=== PATIENT | male | born 1965 | race Caucasian/White ===

== ENCOUNTER 2018-11-01 00:57 | Emergency (ER) | payer BC ==
[~2018-11-01] VITALS: Ht 165.1 cm; Wt 77.1 kg
--- NOTE | 2018-11-01 01:10 | NUR ---
PT PRESENTED TO THE ER WITH A C/O CHEST PRESSURE THAT RADIATES TO THE SHOULDERS AND THE BACK. PT DESCRIBES THE BACK PAIN MUSCLE PAIN. PT AMBULATED TO ER 12 WITH A STEADY GAIT. PT STATED THAT HIS PAIN HAS SIGNIFICANTLY DIMINISHED. PT WAS PLACED ON THE MONITOR AND CONTINUOUS PULSE OX.
--- NOTE | 2018-11-01 01:30 | NUR ---
PT'S ARRIVED AND IS AT THE BEDSIDE. PT IS AWARE THAT HE WILL HAVE A REPEAT TROPONIN AT 4AM
[2018-11-01 01:46] LABS: BASOPHILS # (AUTO) 0.1 /CMM (0.0-0.2); BASOPHILS % (AUTO) 1.1 % (0.0-2.0); EOSINOPHILS % (AUTO) 4.3 % (0.0-6.0); HEMATOCRIT 43 % (39-51); HEMOGLOBIN 14.8 g/dL (13.5-17.5); LYMPHOCYTES # (AUTO) 1.9 /CMM (0.8-4.8); LYMPHOCYTES % (AUTO) 28.5 % (20.0-44.0); MEAN CORPUSCULAR HGB CONC 34 g/dl (31.0-36.0); MEAN CORPUSCULAR VOLUME 93 fL (80-96); MONOCYTES # (AUTO) 0.9 /CMM (0.1-1.30); MONOCYTES % (AUTO) 14.1 % (2.0-12.0); NEUTROPHILS # (AUTO) 3.4 /CMM (1.8-8.9); PLATELET COUNT (AUTO) 234 /CMM (150-450); RED BLOOD CELL COUNT(AUTO) 4.65 MIL/uL (4.5-6.0); WHITE BLOOD COUNT (AUTO) 6.5 K/uL (4.3-11.0)
[2018-11-01 01:53] LABS: CALCIUM, SERUM 8.7 mg/dL (8.5-10.1); CARBON DIOXIDE 25 mmol/L (21-32); CHLORIDE 104 mmol/L (98-107); GLUCOSE 103 mg/dL (74-106); POTASSIUM 3.8 mmol/L (3.5-5.1); SODIUM SERUM 139 mmol/L (136-145); UREA NITROGEN, BLOOD 15 mg/dL (7-18)
--- NOTE | 2018-11-01 02:39 | NUR ---
PT APPEARS TO BE RESTING COMFORTABLY WITH NO S/S OF PAIN OR DISTRESS.
--- NOTE | 2018-11-01 02:56 | NUR ---
REPORT GIVEN TO MARIO AMIN FOR SHAAN.
[2018-11-01 04:52] VITALS: BP 126/74
--- NOTE | 2018-11-01 05:01 | NUR ---
Patient is resting comfortably in bed with eyes closed. Easily aroused. VSS.
--- NOTE | 2018-11-01 05:47 | NUR ---
IVIV removed. Catheter intact and site benign. Pressure and 4x4 applied to site. No bleeding noted.Patient discharged to home in stable condition. Written and verbal after care instructions given. Patient verbalizes understanding of instruction. PT AMBULATORY WITH STEADY GAIT.
== END 2018-11-01 05:51 | disposition home or self-care (01) ==
LOC: ER 01:00
DX: R07.89 Other chest pain (principal); R00.1 Bradycardia, unspecified; F10.10 Alcohol abuse, uncomplicated; Y90.9 Presence of alcohol in blood, level not specified
CPT/HCPCS: 36415; 71045-TC; 80048-TC; 84484-TC; 85025-TC

== ENCOUNTER 2019-12-10 20:11 | Inpatient (IN) | payer BC, OTHER ==
[~2019-12-10] VITALS: Ht 170.2 cm; Wt 103.5 kg
--- NOTE | 2019-12-10 20:30 | NUR ---
BIBPARTNER/ FROM HOME TO ER BED 7. AAOX4. NOT IN RESP DISTRESS. AMBUALTORY. CAME IN FOR RLQ ABDOMINAL PAIN STARTED 1300. PAIN IS RATED 8/10 SHARP IN SENSATION. DENIES NAUSEA OR VOMITING. NOTED TENDERNESS UPON PALPATION OVER THE MCBURNEY'S POINT. ALBERT FAUSTIN AT BEDSIDE FOR EVAL. AWAITING ORDERS.
[2019-12-10] MEDS ORDERED: ONDANSETRON HCL/PF 4 MG/2 ML VIAL ONE (20:54)
[2019-12-10] MEDS ORDERED: MORPHINE SULFATE INJ 4 MG/ML DISP.SYRIN ONE (20:54)
[2019-12-10 20:55] LABS: BASOPHILS # (AUTO) 0.1 /CMM (0.0-0.2); BASOPHILS % (AUTO) 1.3 % (0.0-2.0); EOSINOPHILS % (AUTO) 0.8 % (0.0-6.0); HEMATOCRIT 46 % (39-51); HEMOGLOBIN 15.2 g/dL (13.5-17.5); LYMPHOCYTES # (AUTO) 1.4 /CMM (0.8-4.8); LYMPHOCYTES % (AUTO) 12.6 % (20.0-44.0); MEAN CORPUSCULAR HGB CONC 33 g/dl (31.0-36.0); MEAN CORPUSCULAR VOLUME 93 fL (80-96); MONOCYTES # (AUTO) 1.2 /CMM (0.1-1.30); NEUTROPHILS # (AUTO) 8.2 /CMM (1.8-8.9); NEUTROPHILS % (AUTO) 74.3 % (43.0-81.0); PLATELET COUNT (AUTO) 259 /CMM (150-450); RED BLOOD CELL COUNT(AUTO) 4.92 MIL/uL (4.5-6.0)
[2019-12-10 20:57] LABS: APPEARANCE,URINE Clear (CLEAR); BILIRUBIN,URINE Negative (NEGATIVE); BLOOD, URINE Negative Ery/uL (NEGATIVE); COLOR,URINE Yellow (YELLOW); KETONES,URINE Negative (NEGATIVE); LEUKOCYTE ESTERASE ,URINE Negative (NEGATIVE); NITRITE, URINE Negative (NEGATIVE); PH,URINE 5.5 (5.0-8.0); PROTEIN,URINE Negative (NEGATIVE); UGLUCOSE Negative (NEGATIVE); UROBILINOGEN,URINE 0.2 EU/dL (0.2)
[2019-12-10] MEDS ORDERED: ONDANSETRON HCL/PF 4 MG/2 ML VIAL IVP ONE (21:00)
[2019-12-10] MEDS ORDERED: MORPHINE SULFATE INJ 2 MG/ML DISP.SYRIN IV ONE (21:00)
[2019-12-10] MEDS ORDERED: IV NS 0.9% 1,000 ML BAG IV ONE (21:00)
[2019-12-10 21:02] LABS: CALCIUM, SERUM 9.6 mg/dL (8.5-10.1); CREATININE 1.2 mg/dL (0.6-1.3); POTASSIUM 4.2 mmol/L (3.5-5.1)
[2019-12-10 21:08] LABS: ALBUMIN 4.1 g/dL (3.4-5.0); BILIRUBIN,DIRECT 0.1 mg/dL (0.0-0.2); BILIRUBIN,TOTAL 0.5 mg/dL (0.2-1.0); TOTAL PROTEIN, SERUM 8.1 g/dL (6.4-8.2)
[2019-12-10] MEDS ORDERED: PIPERACILLIN /TAZOBACTAM 3.375 G in IV D5W 50 ML IV ONE (22:00)
--- NOTE | 2019-12-10 22:07 | NUR ---
COVID SWAB DONE AND SENT TO LAB
--- NOTE | 2019-12-10 22:40 | NUR ---
TERRENCE MOREIRA TALKING TO DR. SIMMONS REGARDING PT.
--- NOTE | 2019-12-10 22:46 | NUR ---
Ragini larois in [facility] - 12/10/19 at 2256 by ELROY TERRENCE MOREIRA SPOKE TO DR. ECHEVERRIA REGARDING PT ADMISSION.
[2019-12-10] MEDS ORDERED: PIPERACILLIN /TAZOBACTAM 3.375 G VIAL IV ONE (22:51)
--- NOTE | 2019-12-10 22:56 | NUR ---
ER TALKING TO WANDA DUMONT REGARDING PT ADMISSION.
--- NOTE | 2019-12-10 23:07 | NUR ---
BED 323-1
[2019-12-10] MEDS ORDERED: IV D5/0.45 NACL 1,000 ML IV PRN (23:26)
[2019-12-10] MEDS ORDERED: ACETAMINOPHEN 650 MG/SUPP.RECT RC PRN (23:30)
[2019-12-10] MEDS ORDERED: ONDANSETRON HCL/PF 4 MG/2 ML VIAL IVP PRN (23:30)
--- NOTE | 2019-12-10 23:31 | NUR ---
REPORT CALLED TO M/S MARIO HANNON
--- NOTE | 2019-12-10 23:48 | NUR ---
LAB CALLED REGARDING NEGATIVE COVID RESULT.
[2019-12-11] VITALS (12 sets, daily range): BP systolic 104–126; BP diastolic 65–77
--- NOTE | 2019-12-11 00:05 | NUR ---
PT TRANSPORTED TO UNIT ON [facility] WITH EMT AND RN AT BEDSIDE. PT IS IN STABLE CONDITION. NAD NOTED DURING TRANSPORT. PT AMBULATED FROM GURNEY TO BED ON STEADY GAIT.
--- NOTE | 2019-12-11 00:10 | NUR ---
MS BUSHING PRESS OPERATOR NOTES RECEIVED PATIENT FROM ER, ALERT AND ORIENTED X 4 AMBULATORY. VERBALLY RESPONSIVE AND ABLE TO FOLLOW DIRECTIONS. BREATHING REGULAR AND UNLABORED ON ROOM AIR. RIGHT AC G20 IV LINE INTACT AND PATENT, FLUSHING WELL WITH NO BLEEDING OR S/S OF INFILTRATION NOTED. BODY ASSESSMENT DONE, SKIN INTACT CLEAN AND DRY. BELONGINGS AND VITAL SIGNS CHECKED BY NATUROPATHIC ONCOLOGY PROVIDER. PATIENT DOESN'T HAVE AN ADVANCE DIRECTIVES AND WISHED TO BE FULL CODE. DENIES SUICIDAL IDEATION. COMPLAINED OF 3/10 HEADACHE, TYLENOL 650MG SUPPOSITORY GIVEN. NON-PHARMACOLOGICAL INTERVENTIONS PROVIDED. BED LOW AND LOCKED ON SEMI FOWLERS POSITION. CALL LIGHT IN REACH. WILL CONTINUE TO MONITOR.
[2019-12-11] MEDS ORDERED: PIPERACILLIN /TAZOBACTAM 3.375 G VIAL IV ONE (03:57)
[2019-12-11 05:04] LABS: BASOPHILS # (AUTO) 0.1 /CMM (0.0-0.2); BASOPHILS % (AUTO) 0.6 % (0.0-2.0); EOSINOPHILS % (AUTO) 0.3 % (0.0-6.0); HEMATOCRIT 43 % (39-51); HEMOGLOBIN 14.3 g/dL (13.5-17.5); LYMPHOCYTES # (AUTO) 1.5 /CMM (0.8-4.8); LYMPHOCYTES % (AUTO) 11.3 % (20.0-44.0); MEAN CORPUSCULAR HGB CONC 33 g/dl (31.0-36.0); MEAN CORPUSCULAR VOLUME 93 fL (80-96); MONOCYTES # (AUTO) 1.6 /CMM (0.1-1.30); NEUTROPHILS # (AUTO) 9.8 /CMM (1.8-8.9); NEUTROPHILS % (AUTO) 75.8 % (43.0-81.0); PLATELET COUNT (AUTO) 227 /CMM (150-450)
[2019-12-11 05:34] LABS: THYROID STIMULATING HORMONE 0.699 uIU/mL (0.358-3.74)
[2019-12-11] MEDS ORDERED: PIPERACILLIN /TAZOBACTAM 3.375 G in IV D5W 50 ML IV SCH (06:00)
--- NOTE | 2019-12-11 06:10 | NUR ---
MS RN NOTES CONSENTS FOR LAPAROSCOPIC APPENDECTOMY SIGNED BY PATIENT.
[2019-12-11] MEDS: MORPHINE SULFATE INJ 2 MG/ML DISP.SYRIN IV PRN ×2 (06:12→14:03)
--- NOTE | 2019-12-11 06:35 | NUR ---
MS RN CLOSING NOTES PATIENT IN BED ALERT AND ORIENTED X 4 AMBULATORY. AFEBRILE WITH NO S/S OF DISTRESS OBSERVED. RIGHT AC G20 IV LINE PATENT AND INFUSING WELL. COMPLAINED OF 8/10 RIGHT LOWER ABDOMEN PAIN, MORPHINE 2MG GIVEN IVP. NON-PHARMACOLOGICAL INTERVENTIONS PROVIDED. BED LOW AND LOCKED ON SEMI FOWLERS POSITION. CALL LIGHT IN REACH. WILL ENDORSE TO MORNING SHIFT FOR SHAAN.
[2019-12-11] MEDS ORDERED: BUPIVACAINE 0.5 % PF 150 MG/30 ML VIAL ONE (06:48)
[2019-12-11] MEDS ORDERED: ANESTHESIA TRAY IN PYXIS 1 EA TRAY MC ONE (06:48)
--- NOTE | 2019-12-11 07:15 | NUR ---
MS RN NOTES PATIENT TRANSFERRED TO OR FOR SCHEDULED SURGERY.
[2019-12-11 07:16] LABS: ALBUMIN 3.3 g/dL (3.4-5.0); BILIRUBIN,TOTAL 0.7 mg/dL (0.2-1.0); CALCIUM, SERUM 8.4 mg/dL (8.5-10.1); CREATININE 1.2 mg/dL (0.6-1.3); MAGNESIUM 2.1 mg/dL (1.8-2.4); PHOSPHORUS 4.2 mg/dL (2.5-4.9); POTASSIUM 3.8 mmol/L (3.5-5.1)
[2019-12-11] MEDS ORDERED: MIDAZOLAM HCL 2 MG/2ML VIAL ONE (07:20)
[2019-12-11] MEDS ORDERED: FLUMAZENIL 0.5 MG VIAL ONE (07:21)
[2019-12-11] MEDS ORDERED: SCOPOLAMINE HBR 1 EA PATCH.TD72 TD ONE (07:21)
[2019-12-11] MEDS ORDERED: FENTANYL PF 100MCG/2ML AMPUL ONE (07:21)
[2019-12-11] MEDS ORDERED: SEVOFLURANE 250 ML BOTTLE IH ONE (07:22)
[2019-12-11] MEDS: PANTOPRAZOLE 40 MG VIAL IV SCH (09:53)
--- NOTE | 2019-12-11 09:54 | NUR ---
MS RN NOTES PATIENT RETURNED FROM OR IN STABLE CONDITION WILL CONTINUE TO MONITOR.
[2019-12-11] MEDS: PIPERACILLIN /TAZOBACTAM 3.375 G in IV D5W 100 ML IV SCH ×2 (13:13→21:18)
[2019-12-11] MEDS ORDERED: HYDROCODONE/APAP 5/325MG 1 EACH TABLET PO PRN (19:00)
[2019-12-11] MEDS ORDERED: Potassium Chloride 20 MEQ in IV D5/0.45 NACL 1,000 ML IV SCH (19:00)
--- NOTE | 2019-12-11 19:29 | NUR ---
MS RN NOTES ALL DUE MEDICATIONS ADMINISTERED. ALL NEEDS MET. NO ACUTE CHANGES NOTED DURING SHIFT. PATIENT SEEN AMBULATING IN THE HALLWAY ENCOURAGE. ENDORSED CARE TO PM SHIFT.
--- NOTE | 2019-12-11 21:00 | NUR ---
MS RN OPENING NOTES PATIENT RECEIVED RESTING IN BED A/O X 4. NO SIGNS OF ACUTE DISTRESS. NO COMPLAINTS OF PAIN OR DISCOMFORT AT THE MOMENT. IV LOCATED ON R AC #20. SAFETY PRECAUTIONS IN PLACE WITH BED IN LOWEST POSITION, CALL LIGHT WITHIN REACH, BREAKS ON, SIDE RAILS UP. WILL CONTINUE TO MONITOR THROUGHOUT THE NIGHT.
--- NOTE | 2019-12-11 23:30 | NUR ---
RN NOTES PRN NORCO ADMINISTERED DUE TO COMPLAINTS OF PAIN 09/02
[2019-12-12] MEDS: PIPERACILLIN /TAZOBACTAM 3.375 G in IV D5W 100 ML IV SCH ×2 (05:07→12:17)
--- NOTE | 2019-12-12 06:43 | NUR ---
MS RN CLOSING NOTES PATIENT RESTING IN BED A/O X 4. ON 2L OF O2 VIA NC WITH BREATHING EVEN AND UNLABORED, NO SOB NOTED. NO SIGSN OF ACUTE DISTRESS. NO COMPLAINTS OF PAIN OR DISCOMFORT AT THE MOMENT. IV LOCATED ON R AC #20 AND LFA #22 RUNNING KCL D5NS @ 75 ML/HR. PATIENT STABLE AND AMBULATORY. SAFETY PRECAUTIONS IN PLACE WITH BED IN LOWEST POSITION, CALL LIGHT WITHIN REACH, BREAKS ON, SIDE RAILS UP. ALL NEEDS ATTENDED TO. WLL ENDORSE TO ONCOMING SHIFT ABOUT SHAAN.
[2019-12-12 06:50] LABS: BASOPHILS % (AUTO) 0.2 % (0.0-2.0); EOSINOPHILS % (AUTO) 0.2 % (0.0-6.0); HEMATOCRIT 41 % (39-51); HEMOGLOBIN 13.4 g/dL (13.5-17.5); LYMPHOCYTES # (AUTO) 1.3 /CMM (0.8-4.8); LYMPHOCYTES % (AUTO) 12.5 % (20.0-44.0); MEAN CORPUSCULAR HGB CONC 33 g/dl (31.0-36.0); MEAN CORPUSCULAR VOLUME 94 fL (80-96); MONOCYTES # (AUTO) 1.2 /CMM (0.1-1.30); MONOCYTES % (AUTO) 11.8 % (2.0-12.0); NEUTROPHILS % (AUTO) 75.3 % (43.0-81.0); PLATELET COUNT (AUTO) 225 /CMM (150-450); RED BLOOD CELL COUNT(AUTO) 4.33 MIL/uL (4.5-6.0); WHITE BLOOD COUNT (AUTO) 10.6 K/uL (4.3-11.0)
[2019-12-12 07:24] LABS: CALCIUM, SERUM 8.5 mg/dL (8.5-10.1); CREATININE 1.2 mg/dL (0.6-1.3); MAGNESIUM 2.2 mg/dL (1.8-2.4); PHOSPHORUS 3.3 mg/dL (2.5-4.9); POTASSIUM 3.9 mmol/L (3.5-5.1)
[2019-12-12 08:00] VITALS: BP 104/65
--- NOTE | 2019-12-12 08:00 | NUR ---
MS/RN - Assessment Patient is A/O X 4, afebrile, no complaints overnight, denies abdominal pain at this time, tolerated full lquid diet, will advance to soft, no c/o SOB, stable on room air. POD#1 Lap Appy under the care of Dr. Villaseñor. IVF infusing well on the RAC with no signs of infiltration, saline lock on the LFA is patent and intact. Labs reviewed, no critical results noted. Patient is ambulatory with steady gait. All needs attended and met. Will continue with current medical management.
[2019-12-12] MEDS: PANTOPRAZOLE 40 MG VIAL IV SCH (08:33)
[2019-12-12] MEDS ORDERED: METR-147 PO (10:58)
[2019-12-12] MEDS ORDERED: LEVO750T46 PO (10:58)
[2019-12-12] MEDS ORDERED: HYDR-4384 PO (10:59)
--- NOTE | 2019-12-12 15:50 | NUR ---
MS/RN - Discharge Patient discharged home in stable condition, remain afebrile, denies any abdominal pain, abdomen is soft, non-distended, 3 lap sites with mepilex dressing, c/d/i, tolerated soft diet well, no c/o n/v, ambulatory with steady gait, A/O x 4. Reviewed discharge instructions with patient and he verbalized full understanding of all teachings including medications and follow-up care with his PCP and Dr. Villaseñor within one week for staple removal. E-prescription was sent to his preferred pharmacy. Patient was advised to seek immediate medical attention for worsening of symptoms, severe abdominal pain, heavy bleeding from the incision sites, intractable n/v, diarrhea, shortness of breath, fever, confusion, weakness, fatigue, dizziness, or any other emergent medical concerns. All belongings with patient and he deny any missing items. Patient refused photos to be taken of skin, no breakdown noted except for lap sites. Saline lock removed on the RAC and LFA with catheter tip intact, no redness, no swelling or excessive bleeding noted at the site. Discharge paperwork signed and copies were given per protocol. Accompanied to the lobby via wheelchair by FILTERER and transported via private car by significant other.
== END 2019-12-12 16:00 | disposition home or self-care (01) | DRG 343 ==
LOC: ER 20:13 → MED 23:05 → MEDSG2 12-11 19:58
PROVIDERS: ADMIT Nurse Practitioner Acute Care; ATTEND Nurse Practitioner Acute Care
PROC: 0DTJ4ZZ Resection of Appendix, Percutaneous Endoscopic Approach (ICD-10-PCS; principal; 2019-12-11)
DX: K35.30 Acute appendicitis with localized peritonitis, without perforation or gangrene (principal); Z68.35 Body mass index [BMI] 35.0-35.9, adult; E66.9 Obesity, unspecified; D72.829 Elevated white blood cell count, unspecified
CPT/HCPCS: 36415; 71045-TC; 80048-TC; 80053-TC; 80061-TC; 80076-TC; 81000-TC; 83690-TC; 83735-TC; 84100-TC; 84443-TC; 85025-TC; 85730-TC; 86850-TC; 87070-TC; 87075-TC; 87081-TC; C9113; G0378; J1100; J1885; J2250; J2270; J2405; J2543; J2704; J3010; J3480; J3490; J7030; J7060

== ENCOUNTER 2020-03-03 11:28 | Emergency (ER) | payer BC ==
[~2020-03-03] VITALS: Ht 170.2 cm; Wt 104.3 kg
[~2020-03-03 11:28] MED LIST: HYDR-4384 PO; LEVO750T46 PO; METR-147 PO
--- NOTE | 2020-03-03 11:30 | NUR ---
BIB FRIEND C/O DIZZINESS "I FEEL LIKE THE ROOM IS SPINNING", TO ER BED 1, HOOKED TO SENIOR UX DESIGNER, BP CUFF AND POX, CHANGED TO HOSP GOWN, WARM BLANKET PROVIDED, PATIENT AAOx 4, BREATHING EVEN AND UNLABORED, NAD NOTED, DR DELAROSA AT BEDSIDE
[2020-03-03] MEDS ORDERED: ONDANSETRON HCL/PF 4 MG/2 ML VIAL ONE (11:46)
[2020-03-03] MEDS ORDERED: MECLIZINE HCL 25 MG TABLET ONE (11:46)
[2020-03-03] MEDS ORDERED: ONDANSETRON HCL/PF 4 MG/2 ML VIAL IVP ONE (12:00)
[2020-03-03] MEDS ORDERED: IV NS 0.9% 500 ML BAG IV ONE (12:00)
[2020-03-03] MEDS ORDERED: MECLIZINE HCL 25 MG TABLET PO ONE (12:00)
[2020-03-03 12:23] LABS: HEMOGLOBIN 12.2 g/dL (13.5-17.5)
[2020-03-03 12:29] LABS: BASOPHILS # (AUTO) 0.1 /CMM (0.0-0.2); BASOPHILS % (AUTO) 1.7 % (0.0-2.0); EOSINOPHILS % (AUTO) 1.8 % (0.0-6.0); HEMATOCRIT 36 % (39-51); LYMPHOCYTES % (AUTO) 19.7 % (20.0-44.0); MEAN CORPUSCULAR HGB CONC 34 g/dl (31.0-36.0); MEAN CORPUSCULAR VOLUME 92 fL (80-96); MONOCYTES # (AUTO) 0.5 /CMM (0.1-1.30); MONOCYTES % (AUTO) 10.3 % (2.0-12.0); NEUTROPHILS # (AUTO) 3.3 /CMM (1.8-8.9); NEUTROPHILS % (AUTO) 66.5 % (43.0-81.0); PLATELET COUNT (AUTO) 188 /CMM (150-450); RED BLOOD CELL COUNT(AUTO) 3.88 MIL/uL (4.5-6.0); WHITE BLOOD COUNT (AUTO) 4.9 K/uL (4.3-11.0)
[2020-03-03 12:34] LABS: ALBUMIN 2.4 g/dL (3.4-5.0); BILIRUBIN,DIRECT 0.1 mg/dL (0.0-0.2); BILIRUBIN,TOTAL 0.3 mg/dL (0.2-1.0); CALCIUM, SERUM 6.4 mg/dL (8.5-10.1); CREATININE 0.7 mg/dL (0.6-1.3); POTASSIUM 2.9 mmol/L (3.5-5.1); TOTAL PROTEIN, SERUM 5.1 g/dL (6.4-8.2)
[2020-03-03] MEDS ORDERED: POTASSIUM CHLORIDE 20 MEQ TAB.PRT.SR PO ONE ×2 (13:30→13:34)
[2020-03-03 13:35] VITALS: BP 129/82
--- NOTE | 2020-03-03 13:35 | NUR ---
IV removed. Catheter intact and site benign. Pressure and 4x4 applied to site. No bleeding noted.Patient discharged to home in stable condition. Written and verbal after care instructions given. Patient verbalizes understanding of instruction.
[2020-03-03] MEDS ORDERED: MECLIZINE HCL 12.5 MG TABLET PO ONE (14:00)
== END 2020-03-03 13:38 | disposition home or self-care (01) ==
LOC: ER 11:31
DX: R42 Dizziness and giddiness (principal); Z98.890 Other specified postprocedural states; Z79.899 Other long term (current) drug therapy
CPT/HCPCS: 36415; 80048; 80076; 85025; 96374; 99284; J2405; J7040; J8597

== ENCOUNTER 2024-02-09 22:39 | Emergency (ER) | payer BC ==
[~2024-02-09] VITALS: Ht 170.2 cm; Wt 98.4 kg
[2024-02-10] MEDS ORDERED: IBUPROFEN 400 MG TABLET ONE (00:28)
[2024-02-10] MEDS ORDERED: TDAP [DIPH/PERTUSSIS/TET] 0.5 ML VIAL IM ONE (00:29)
[2024-02-10] MEDS: IBUPROFEN 400 MG TABLET PO ONE (00:36)
[2024-02-10] MEDS: TDAP [DIPH/PERTUSSIS/TET] 0.5 ML VIAL IM ONE (00:36)
[2024-02-10] MEDS ORDERED: HYDR-3972 PO (00:48)
[2024-02-10] MEDS ORDERED: HYDROCODONE/APAP 5/325MG TABLET ONE (01:00)
[2024-02-10] MEDS: HYDROCODONE/APAP 5/325MG TABLET PO ONE (01:03)
[2024-02-10 01:16] VITALS: BP 125/69; TEMP 98; O2SAT 99
== END 2024-02-10 01:16 | disposition home or self-care (01) ==
LOC: ER 22:57
DX: S52.612A Displaced fracture of left ulna styloid process, initial encounter for closed fracture (principal); S80.212A Abrasion, left knee, initial encounter; Z90.49 Acquired absence of other specified parts of digestive tract; W01.0XXA Fall on same level from slipping, tripping and stumbling without subsequent striking against object, initial encounter; Y93.89 Activity, other specified; Y92.89 Other specified places as the place of occurrence of the external cause; Y99.8 Other external cause status
CPT/HCPCS: 73110; 90715